=== PATIENT | female | born 1955 | race Caucasian/White ===

== ENCOUNTER 2016-11-12 22:40 | Emergency (ER) | payer BC ==
[~2016-11-12] VITALS: Ht 167.6 cm; Wt 59.0 kg
[~2016-11-12 22:40] MED LIST: B COMPLEX #11 EACH PO; CALCIUM 500 MG1 EACH PO; FOLIC ACID1 MG PO; LEVOTHYROXINE125 MCG PO; PREDNISONE10 MG PO; TYLENOL COLD H1 EAC5 PO; VITAMIN D1000 UNIT PO; XARELTO20 MG PO
[2016-11-12 23:32] LABS: MCH 33.9 PG (29.0-34.0); MCV 106.1 FL (83-99); MEAN PLAT.VOLUME 8.7 uM^3 (9.5-12.4); PLATELET COUNT 170 K/uL (156-360); RBC DIS.WIDTH-SD 58.5 % (39-53); WHITE BLOOD COUNT 14.7 K/uL (4.1-10.2)
[2016-11-12 23:40] LABS: CHLORIDE 103 mEq/L (99-109); SODIUM 141 mEq/L (136-147)
[2016-11-12 23:43] LABS: ANION GAP 10 MEQ/L (2-14)
[2016-11-12 23:44] LABS: GLUCOSE 104 mg/dL (70-99)
[2016-11-12 23:46] LABS: GFR ESTIMATE (CALCULATED) > 59 mL/min/
[2016-11-12 23:47] LABS: UREA NITROGEN (BUN) 19 mg/dL (9-23)
[2016-11-12 23:53] LABS: TROP-I INTERPRETATION NEGATIVE; TROPONIN-I < 0.01 ng/mL (0.0-0.30)
[2016-11-13 02:01] LABS: TROP-I INTERPRETATION NEGATIVE; TROPONIN-I < 0.01 ng/mL (0.0-0.30)
[2016-11-13 03:11] VITALS: BP 152/82
== END 2016-11-13 03:12 | disposition home or self-care (01) ==
LOC: EME 22:40
PROVIDERS: Physician Assistant Medical
DX: R07.9 Chest pain, unspecified (principal); C91.10 Chronic lymphocytic leukemia of B-cell type not having achieved remission; Z86.711 Personal history of pulmonary embolism; Z86.718 Personal history of other venous thrombosis and embolism; Z79.01 Long term (current) use of anticoagulants
CPT/HCPCS: 71020; 80048; 84484; 85027; 85379; 93005; 99281; 99284

== ENCOUNTER 2017-06-09 12:02 | Emergency (ER) | payer BC ==
[~2017-06-09] VITALS: Ht 167.6 cm; Wt 56.0 kg
[2017-06-09 13:38] LABS: EOSINOPHIL (%) 0.8 % (0-5); EOSINOPHIL COUNT 0.1 K/uL (0-0.3); HEMATOCRIT 35.7 % (36.0-46.0); IMMATURE GRANULOCYTE (%) 0.3 % (0.0-0.7); INSTRUMENT ABS NEUTROPHIL CT 2.8 K/uL; LYMPHOCYTE COUNT 3.4 K/uL (1.0-2.8); MCH 31.7 PG (29.0-34.0); MCHC 33.3 G/DL (30.0-36.0); MCV 95.2 FL (83-99); MEAN PLAT.VOLUME 9.9 uM^3 (9.5-12.4); MONOCYTE (%) 1.4 % (3-12); MONOCYTE COUNT 0.1 K/uL (0-0.8); NEUTROPHIL (%) 44.3 % (45-76); NEUTROPHIL COUNT 2.8 K/uL (1.8-6.4); PLATELET COUNT 196 K/uL (156-360); RBC DIS.WIDTH-CV 12.3 % (11.8-14.6); RBC DIS.WIDTH-SD 42.8 % (39-53); RED BLOOD COUNT 3.75 M/uL (3.80-5.20); WHITE BLOOD COUNT 6.4 K/uL (4.1-10.2)
[2017-06-09 13:53] LABS: CHLORIDE 103 mEq/L (99-109); POTASSIUM 3.9 mEq/L (3.7-5.4); SODIUM 140 mEq/L (136-147)
[2017-06-09 13:54] LABS: GLUCOSE 109 mg/dL (70-99)
[2017-06-09 13:56] LABS: ANION GAP 10 MEQ/L (2-14)
[2017-06-09 13:58] LABS: GFR ESTIMATE (CALCULATED) > 59 mL/min/
[2017-06-09 13:59] LABS: UREA NITROGEN (BUN) 10 mg/dL (9-23)
[2017-06-09 14:30] LABS: INFLUENZA A VIRAL ANTIGEN NEGATIVE; INFLUENZA B VIRAL ANTIGEN NEGATIVE
[2017-06-09 15:18] VITALS: BP 134/81
== END 2017-06-09 15:22 | disposition home or self-care (01) ==
LOC: EME 12:02
PROVIDERS: Emergency Medicine
DX: B34.9 Viral infection, unspecified (principal); R50.9 Fever, unspecified; Z85.6 Personal history of leukemia
CPT/HCPCS: 71250; 80048; 83605; 85025; 87040; 87502; 99281; 99285; J7030